=== PATIENT | male | born 1990 | race Caucasian/White ===

== ENCOUNTER 2020-03-02 12:58 | Emergency (ER) | payer OTHER ==
[~2020-03-02] VITALS: Ht 180.3 cm; Wt 172.4 kg
[2020-03-02] MEDS ORDERED: NORCO 5-325 TA1 EAC1 PO (14:19)
[2020-03-02] MEDS ORDERED: CLEOCIN HCL150 MG PO (14:19)
[2020-03-02 14:37] VITALS: BP 141/87
== END 2020-03-02 14:38 | disposition home or self-care (01) ==
LOC: M.ERS 12:58
DX: L02.512 Cutaneous abscess of left hand (principal); Z86.14 Personal history of Methicillin resistant Staphylococcus aureus infection